=== PATIENT | male | born 1985 | race Hispanic/Latino ===

== ENCOUNTER 2017-10-23 13:07 | Emergency (ER) | payer SELFPAY ==
--- NOTE | 2017-10-23 15:49 | ER ---
Nurse's Notes [facility] Name: Korey Marks Age: 32 yrs Sex: Male : 1985 Arrival Date: 10/23/2017 Time: 13:10 Bed 11 Private MD: None, None Diagnosis: Low back pain Presentation: 10/23 14:07 Presenting complaint: Patient states: Reports low back pain for 3 months that got worse aj today. Reports pain with movement or bending. Transition of care: patient was not received from another setting of care. Onset of symptoms was June 2017. Risk Assessment: Do you want to hurt yourself or someone else? Patient reports no desire to harm self or others. Initial Sepsis Screen: Does the patient meet any 2 criteria? No. Patient's initial sepsis screen is negative. Does the patient have a suspected source of infection? No. Patient's initial sepsis screen is negative. Care prior to arrival: None. 14:07 Method Of Arrival: Ambulatory aj 14:07 Acuity: LISA 4 aj Triage Assessment: 14:08 General: Appears in no apparent distress. comfortable, Behavior is calm, cooperative, aj appropriate for age. Pain: Complains of pain in low back area. Neuro: Level of Consciousness is awake, alert, obeys commands, Oriented to person, place, time, situation, Appropriate for age. Respiratory: Airway is patent Trachea midline Respiratory effort is even, unlabored, Respiratory pattern is regular, symmetrical. Derm: Skin is intact, is healthy with good turgor, Skin is pink, warm \T\ dry. normal. Musculoskeletal: Circulation, motion, and sensation intact. Reports pain in low back area. Historical: - Allergies: 14:08 No Known Allergies; aj - Home Meds: 14:08 None [Active]; aj - PMHx: 14:08 None; aj - PSHx: 14:08 None; aj - Immunization history:: Adult Immunizations up to date. - Social history:: Smoking status: Patient/guardian denies using tobacco. - Ebola Screening: : Patient negative for fever greater than or equal to 101.5 degrees Fahrenheit, and additional compatible Ebola Virus Disease symptoms Patient denies exposure to infectious person Patient denies travel to an Ebola-affected area in the 21 days before illness onset No symptoms or risks identified at this time. Screenin:38 Abuse screen: Denies threats or abuse. Nutritional screening: No deficits noted. rk2 Tuberculosis screening: No symptoms or risk factors identified. Fall Risk None identified. Assessment: 15:39 General: Appears in no apparent distress. slender, well groomed, well developed, well rk2 nourished, Behavior is calm, cooperative, appropriate for age. Pain: Complains of pain in back and low back area. Neuro: Level of Consciousness is alert, obeys commands, Oriented to person, place, time, situation. Respiratory: Airway is patent Respiratory effort is even, unlabored, Respiratory pattern is regular, symmetrical. Derm: Skin is pink, warm \T\ dry. Injury Description: No obvious trauma/bruising noted. Vital Signs: 14:08 BP 134 / 81; Pulse 84; Resp 18; Temp 98.6; Pulse Ox 96% on R/A; Weight 82.55 kg; Height aj 5 ft. 6 in. (167.64 cm); 16:07 BP 124 / 74; Pulse 88; Resp 16; Pulse Ox 97% ; rk2 14:08 Body Mass Index 29.38 (82.55 kg, 167.64 cm) aj ED Course: 13:10 Patient arrived in ED. sb2 13:11 None, None is Private Physician. sb2 14:08 Triage completed. aj 14:08 Arm band placed on left wrist. Patient placed in waiting room, Patient notified of wait aj time. 15:32 Diana Gan, RN is Primary Nurse. rk2 15:38 Patient has correct armband on for positive identification. Bed in low position. Call rk2 light in reach. 15:44 Maryam Herrera FNP-C [facility]. snw 15:44 Flynn Lamb MD is Attending Physician. snw 16:07 No provider procedures requiring assistance completed. Patient did not have IV access rk2 during this emergency room visit. Administered Medications: 16:00 Drug: TORadol 60 mg Route: IM; Site: left deltoid; rk2 16:09 Follow up: Given \T\ DC rk2 16:00 Drug: Flexeril 10 mg Route: PO; rk2 16:09 Follow up: given \T\ DC rk2 Intake: Outcome: 15:48 Discharge ordered by . snw 16:08 Discharged to home ambulatory. rk2 16:08 Condition: good 16:08 Discharge instructions given to patient, Prescriptions given X 2. 16:08 Patient left the ED. rk2 Signatures: Tatum Gilbert, RN Maryam Yeung, PIPE COVERER AND INSULATOR-C PIPE COVERER AND INSULATOR-Csnw Diana Gan RN RN rk2 Mabel Mercado sb2
--- NOTE | 2017-10-23 15:49 | EDPHYS ---
Physician Documentation [facility] Name: Korey Marks Age: 32 yrs Sex: Male : 1985 Arrival Date: 10/23/2017 Time: 13:10 Bed 11 Private MD: None, None ED Physician Flynn Lamb HPI: 10/23 17:26 This 32 yrs old Male presents to ER via Ambulatory with complaints of Back snw Pain. 17:26 The patient presents with pain that is acute. The symptoms are located in the low back. snw Onset: The symptoms/episode began/occurred 3 month(s) ago, and became worse 3 day(s) ago. The pain does not radiate. Associated signs and symptoms: The patient has no apparent associated signs or symptoms. The problem was sustained from unknown cause. Severity of symptoms: At their worst the symptoms were moderate, severe. It is unknown whether or not the patient has had similar symptoms in the past. The patient has not recently seen a physician. Historical: - Allergies: 14:08 No Known Allergies; aj - Home Meds: 14:08 None [Active]; aj - PMHx: 14:08 None; aj - PSHx: 14:08 None; aj - Immunization history:: Adult Immunizations up to date. - Social history:: Smoking status: Patient/guardian denies using tobacco. - Ebola Screening: : Patient negative for fever greater than or equal to 101.5 degrees Fahrenheit, and additional compatible Ebola Virus Disease symptoms Patient denies exposure to infectious person Patient denies travel to an Ebola-affected area in the 21 days before illness onset No symptoms or risks identified at this time. ROS: 17:24 Constitutional: Negative for fever, chills, and weight loss, Eyes: Negative for injury, snw pain, redness, and discharge, ENT: Negative for injury, pain, and discharge, Neck: Negative for injury, pain, and swelling, Cardiovascular: Negative for chest pain, palpitations, and edema, Respiratory: Negative for shortness of breath, cough, wheezing, and pleuritic chest pain, Abdomen/GI: Negative for abdominal pain, nausea, vomiting, diarrhea, and constipation, Back: Negative for injury, + pain with flexion, difficulty performing work responsibilities : Negative for injury, bleeding, discharge, and swelling, MS/Extremity: Negative for injury and deformity, Skin: Negative for injury, rash, and discoloration. Exam: 17:23 Constitutional: This is a well developed, well nourished patient who is awake, alert, snw and in no acute distress. Head/Face: Normocephalic, atraumatic. Eyes: Pupils equal round and reactive to light, extra-ocular motions intact. Lids and lashes normal. Conjunctiva and sclera are non-icteric and not injected. Cornea within normal limits. Periorbital areas with no swelling, redness, or edema. ENT: Nares patent. No nasal discharge, no septal abnormalities noted. Tympanic membranes are normal and external auditory canals are clear. Oropharynx with no redness, swelling, or masses, exudates, or evidence of obstruction, uvula midline. Mucous membranes moist. Neck: Trachea midline, no thyromegaly or masses palpated, and no cervical lymphadenopathy. Supple, full range of motion without nuchal rigidity, or vertebral point tenderness. No Meningismus. Chest/axilla: Normal chest wall appearance and motion. Nontender with no deformity. No lesions are appreciated. Cardiovascular: Regular rate and rhythm with a normal S1 and S2. No gallops, murmurs, or rubs. Normal PMI, no JVD. No pulse deficits. Respiratory: Lungs have equal breath sounds bilaterally, clear to auscultation and percussion. No rales, rhonchi or wheezes noted. No increased work of breathing, no retractions or nasal flaring. Abdomen/GI: Soft, non-tender, with normal bowel sounds. No distension or tympany. No guarding or rebound. No evidence of tenderness throughout. Skin: Warm, dry with normal turgor. Normal color with no rashes, no lesions, and no evidence of cellulitis. MS/ Extremity: Pulses equal, no cyanosis. Neurovascular intact. Full, normal range of motion. Neuro: Awake and alert, GCS 15, oriented to person, place, time, and situation. Cranial nerves II-XII grossly intact. Motor strength 5/5 in all extremities. Sensory grossly intact. Cerebellar exam normal. Normal gait. Psych: Awake, alert, with orientation to person, place and time. Behavior, mood, and affect are within normal limits. 17:23 Back: pain, that is moderate, of the lumbar area, left low back and right low back, ROM is painful, with flexion, normal spinal alignment noted, CVA tenderness, is absent, muscle spasm, is appreciated in the left low back and right low back. 17:27 Neuro: Exam negative for acute changes. snw Vital Signs: 14:08 BP 134 / 81; Pulse 84; Resp 18; Temp 98.6; Pulse Ox 96% on R/A; Weight 82.55 kg; Height aj 5 ft. 6 in. (167.64 cm); 16:07 BP 124 / 74; Pulse 88; Resp 16; Pulse Ox 97% ; rk2 14:08 Body Mass Index 29.38 (82.55 kg, 167.64 cm) aj MDM: 15:44 Patient medically screened. snw 17:27 Data reviewed: vital signs, nurses notes. Data interpreted: Pulse oximetry: on room air snw is 97 %. Interpretation: normal. Counseling: I had a detailed discussion with the patient and/or guardian regarding: the historical points, exam findings, and any diagnostic results supporting the discharge/admit diagnosis, the need for outpatient follow up, to return to the emergency department if symptoms worsen or persist or if there are any questions or concerns that arise at home. Special discussion: Based on the history and exam findings, there is no indication for further emergent testing or inpatient evaluation. I discussed with the patient/guardian the need to see the back specialist for further evaluation of the symptoms. I discussed with the patient/guardian the need to see the primary care provider for further evaluation of the symptoms. Administered Medications: 16:00 Drug: TORadol 60 mg Route: IM; Site: left deltoid; rk2 16:09 Follow up: Given \T\ DC rk2 16:00 Drug: Flexeril 10 mg Route: PO; rk2 16:09 Follow up: given \T\ DC rk2 Disposition: 10/24 06:53 Co-signature as Attending Physician, Flynn Lamb MD I agree with the assessment and radha plan of care. Disposition: 10/23/17 15:48 Discharged to Home. Impression: Low back pain. - Condition is Stable. - Discharge Instructions: Back Pain, Adult, Hypertension, Musculoskeletal Pain, Back Injury Prevention, [id number], Back Exercises, [id number], Cryotherapy, Heat Therapy. - Prescriptions for Diclofenac Sodium 75 mg Oral Tablet Sustained Release - take 1 tablet by ORAL route 2 times per day; 30 tablet. orphenadrine citrate 100 mg Oral Tablet Sustained Release - take 1 tablet by ORAL route 2 times per day As needed; 20 tablet. - Work release form, Medication Reconciliation Form, Thank You Letter, Antibiotic Education, Prescription Opioid Use form. - Follow up: Private Physician; When: 2 - 3 days; Reason: Recheck today's complaints, Continuance of care, Re-evaluation by your physician. Follow up: Emergency Department; When: As needed; Reason: Worsening of condition. Signatures: Tatum Gilbert, RN Flynn Cadena MD MD cha Therrien, Shelly, LINK TRAINER TEACHER-C LINK TRAINER TEACHER-Csnw Diana Gan RN RN rk2 Corrections: (The following items were deleted from the chart) 10/23 16:08 15:48 10/23/2017 15:48 Discharged to Home. Impression: Low back pain. Condition is rk2 Stable. Forms are Medication Reconciliation Form, Thank You Letter, Antibiotic Education, Prescription Opioid Use. Follow up: Private Physician; When: 2 - 3 days; Reason: Recheck today's complaints, Continuance of care, Re-evaluation by your physician. Follow up: Emergency Department; When: As needed; Reason: Worsening of condition. snw
[2017-10-23] MEDS ORDERED: KETOROLAC 30 MG/ML INJ ONE (15:58)
[2017-10-23] MEDS ORDERED: CYCLOBENZAPRINE 10 MG TAB ONE (15:58)
== END 2017-10-23 16:08 | disposition home or self-care (01) ==
LOC: ER 13:07
DX: M54.5 Low back pain (principal)
CPT/HCPCS: 96372; 99283

== ENCOUNTER 2019-01-05 11:02 | Emergency (ER) | payer SELFPAY ==
--- NOTE | 2019-01-05 13:57 | RAD REPORT ---
EXAM DESCRIPTION: RAD - Chest Single View - 01/05/2019 1:47 pm CLINICAL HISTORY: Fall, right-sided chest and abdomen pain COMPARISON: None. TECHNIQUE: AP portable chest image was obtained . FINDINGS: Lungs are clear. Heart and vasculature are normal. No measurable pleural effusion and no p neumothorax. No acute bone abnormality seen. Right-sided ribs are further detailed on separate report . No acute aortic findings suspected. IMPRESSION: No acute cardiopulmonary process. No significant change from comparison.
--- NOTE | 2019-01-05 13:59 | RAD REPORT ---
EXAM DESCRIPTION: Ribs Right - 01/05/2019 1:47 pm CLINICAL HISTORY: Fall, chest pain, right-sided rib pain COMPARISON: Chest film same date FINDINGS: No displaced rib fracture is evident. No aggressive rib lesion. No underlying pneumothorax, effusion, infiltrate or pulmonary contusion. IMPRESSION: Negative right rib series.
--- NOTE | 2019-01-05 14:02 | ER ---
Nurse's Notes [facility] Name: Korey Marks Age: 33 yrs Sex: Male : 1985 Arrival Date: 01/05/2019 Time: 11:03 Bed 26 Private MD: Diagnosis: Fall on same level, unspecified;Chest wall pain - clinical rib fracture Presentation: 01/05 11:18 Presenting complaint: Patient states: "I was wrestling with another andreina yesterday and I aa5 fell and landed on a metal pipe". Pt c/o pain to right side of abdomen. Transition of care: patient was not received from another setting of care. Onset of symptoms was December 2018. Risk Assessment: Do you want to hurt yourself or someone else? Patient reports no desire to harm self or others. Initial Sepsis Screen: Does the patient meet any 2 criteria? No. Patient's initial sepsis screen is negative. Does the patient have a suspected source of infection? No. Patient's initial sepsis screen is negative. Care prior to arrival: None. 11:18 Acuity: LISA 3 aa5 11:18 Method Of Arrival: Ambulatory aa5 Historical: - Allergies: 11:20 No Known Allergies; aa5 - PMHx: 11:20 None; aa5 - PSHx: 11:20 None; aa5 - Immunization history:: Adult Immunizations unknown. - Social history:: Smoking status: Patient uses tobacco products, denies chronic smoking, but will smoke occasionally. - Ebola Screening: : No symptoms or risks identified at this time. Screenin:29 Abuse screen: Denies threats or abuse. Denies injuries from another. Nutritional ca1 screening: No deficits noted. Tuberculosis screening: No symptoms or risk factors identified. Fall Risk None identified. Assessment: 12:29 General: Appears in no apparent distress. comfortable, Behavior is calm, cooperative, ca1 appropriate for age. Pain: Complains of pain in R rib Pain does not radiate. Pain currently is 8 out of 10 on a pain scale. Pain began 1 day ago. Neuro: Level of Consciousness is awake, alert, obeys commands, Oriented to person, place, time, situation. Cardiovascular: Heart tones S1 S2 present Capillary refill < 3 seconds Patient's skin is warm and dry. Respiratory: Airway is patent Respiratory effort is even, unlabored, Respiratory pattern is regular, symmetrical, Breath sounds are clear bilaterally. GI: Abdomen is flat, non-distended, Bowel sounds present X 4 quads. Abd is soft and non tender X 4 quads. : No deficits noted. No signs and/or symptoms were reported regarding the genitourinary system. EENT: No deficits noted. No signs and/or symptoms were reported regarding the EENT system. Derm: Skin is intact, is healthy with good turgor, Skin is pink, warm \\T\\ dry. Musculoskeletal: Circulation, motion, and sensation intact. Capillary refill < 3 seconds, Range of motion: intact in all extremities. 13:30 Reassessment: Patient appears in no apparent distress at this time. Patient and/or ca1 family updated on plan of care and expected duration. Pain level reassessed. Patient is alert, oriented x 3, equal unlabored respirations, skin warm/dry/pink. Vital Signs: 11:20 BP 133 / 80; Pulse 72; Resp 18 S; Temp 97.6(TE); Pulse Ox 98% on R/A; Weight 83.91 kg aa5 (R); Height 5 ft. 6 in. (167.64 cm) (R); Pain 7/10; 12:29 BP 126 / 84; Pulse 70; Resp 17 S; Pulse Ox 99% on R/A; ca1 13:00 BP 120 / 77; Pulse 73; Resp 16 S; Pulse Ox 98% on R/A; ca1 14:09 BP 119 / 78; Pulse 74; Resp 16; Pulse Ox 100% on R/A; tr5 11:20 Body Mass Index 29.86 (83.91 kg, 167.64 cm) aa5 ED Course: 11:03 Patient arrived in ED. as 11:18 Arm band placed on. aa5 11:19 Triage completed. aa5 12:03 Maryam Herrera FNP-C is [facility]. snw 12:03 Nithin Brasher MD is Attending Physician. snw 12:07 Ellyn Tejada, BRIA is Primary Nurse. ca1 12:29 Patient has correct armband on for positive identification. Bed in low position. Call ca1 light in reach. Side rails up X 1. Pulse ox on. NIBP on. Warm blanket given. 12:29 No provider procedures requiring assistance completed. Patient did not have IV access ca1 during this emergency room visit. 13:50 Ribs Right XRAY In Process Unspecified. EDMS 13:50 Chest Single View XRAY In Process Unspecified. EDMS Administered Medications: No medications were administered Outcome: 14:02 Discharge ordered by . jessica 14:19 Discharged to home ambulatory. tr5 14:19 Condition: stable 14:19 Discharge instructions given to patient, Instructed on discharge instructions, follow up and referral plans. medication usage, Demonstrated understanding of instructions, follow-up care, medications, Prescriptions given X 1. 14:20 Patient left the ED. tr5 Signatures: Dispatcher [employer] EDMS Maryam Herrera, EXTENSION SERVICE SPECIALIST IN CHARGE-C EXTENSION SERVICE SPECIALIST IN CHARGE-Csnw Krista Brower Audri RN RN aa5 Ellyn Tejada RN RN ca1 Rodriguez, Tommie, RN RN tr5 Corrections: (The following items were deleted from the chart) 11:22 11:18 Presenting complaint: Patient states: "I was with another andreina yesterday and I aa5 fell and landed on a metal pipe". Pt c/o pain to right side of abdomen. aa5
--- NOTE | 2019-01-05 14:02 | EDPHYS ---
Physician Documentation [facility] Name: Korey Marks Age: 33 yrs Sex: Male : 1985 Arrival Date: 01/05/2019 Time: 11:03 Bed 26 Private MD: ED Physician Nithin Brasher HPI: 01/05 14:02 This 33 yrs old Male presents to ER via Ambulatory with complaints of Fall snw Injury - Rib Pain, Abdominal Pain. 14:02 Details of fall: The patient fell from an upright position. Onset: The symptoms/episode snw began/occurred suddenly, 1 day(s) ago, and became persistent. Associated injuries: The patient sustained injury to the chest, specifically the right lateral anterior chest, contusion. Severity of symptoms: At their worst the symptoms were moderate. The patient has not experienced similar symptoms in the past. The patient has not recently seen a physician. wrestling and landed on the floor on a pipe to right chest. Historical: - Allergies: 11:20 No Known Allergies; aa5 - PMHx: 11:20 None; aa5 - PSHx: 11:20 None; aa5 - Immunization history:: Adult Immunizations unknown. - Social history:: Smoking status: Patient uses tobacco products, denies chronic smoking, but will smoke occasionally. - Ebola Screening: : No symptoms or risks identified at this time. ROS: 13:59 Eyes: Negative for injury, pain, redness, and discharge, ENT: Negative for injury, snw pain, and discharge, Neck: Negative for injury, pain, and swelling. 13:59 Constitutional: Negative for fever, chills, and weight loss, Respiratory: Negative for shortness of breath, cough, wheezing, and pleuritic chest pain, Abdomen/GI: Negative for abdominal pain, nausea, vomiting, diarrhea, and constipation, Back: Negative for injury and pain, : Negative for injury, bleeding, discharge, and swelling, MS/Extremity: Negative for injury and deformity, Skin: Negative for injury, rash, and discoloration, Neuro: Negative for headache, weakness, numbness, tingling, and seizure. 13:59 Cardiovascular: Positive for chest wall pain. Exam: 13:58 Constitutional: This is a well developed, well nourished patient who is awake, alert, snw and in no acute distress. Head/Face: Normocephalic, atraumatic. Eyes: Pupils equal round and reactive to light, extra-ocular motions intact. Lids and lashes normal. Conjunctiva and sclera are non-icteric and not injected. Cornea within normal limits. Periorbital areas with no swelling, redness, or edema. ENT: Nares patent. No nasal discharge, no septal abnormalities noted. Tympanic membranes are normal and external auditory canals are clear. Oropharynx with no redness, swelling, or masses, exudates, or evidence of obstruction, uvula midline. Mucous membranes moist. Neck: Trachea midline, no thyromegaly or masses palpated, and no cervical lymphadenopathy. Supple, full range of motion without nuchal rigidity, or vertebral point tenderness. No Meningismus. Cardiovascular: Regular rate and rhythm with a normal S1 and S2. No gallops, murmurs, or rubs. Normal PMI, no JVD. No pulse deficits. Respiratory: Lungs have equal breath sounds bilaterally, clear to auscultation and percussion. No rales, rhonchi or wheezes noted. No increased work of breathing, no retractions or nasal flaring. Abdomen/GI: Soft, non-tender, with normal bowel sounds. No distension or tympany. No guarding or rebound. No evidence of tenderness throughout. Back: No spinal tenderness. No costovertebral tenderness. Full range of motion. Skin: Warm, dry with normal turgor. Normal color with no rashes, no lesions, and no evidence of cellulitis. MS/ Extremity: Pulses equal, no cyanosis. Neurovascular intact. Full, normal range of motion. Neuro: Awake and alert, GCS 15, oriented to person, place, time, and situation. Cranial nerves II-XII grossly intact. Motor strength 5/5 in all extremities. Sensory grossly intact. Cerebellar exam normal. Normal gait. Psych: Awake, alert, with orientation to person, place and time. Behavior, mood, and affect are within normal limits. 13:58 Chest/axilla: Inspection: normal, Palpation: no acute changes, tenderness, that is moderate, of the right lateral anterior chest, Lymph nodes: lymphadenopathy is not appreciated. Vital Signs: 11:20 BP 133 / 80; Pulse 72; Resp 18 S; Temp 97.6(TE); Pulse Ox 98% on R/A; Weight 83.91 kg aa5 (R); Height 5 ft. 6 in. (167.64 cm) (R); Pain 7/10; 12:29 BP 126 / 84; Pulse 70; Resp 17 S; Pulse Ox 99% on R/A; ca1 13:00 BP 120 / 77; Pulse 73; Resp 16 S; Pulse Ox 98% on R/A; ca1 14:09 BP 119 / 78; Pulse 74; Resp 16; Pulse Ox 100% on R/A; tr5 11:20 Body Mass Index 29.86 (83.91 kg, 167.64 cm) aa5 MDM: 12:29 Patient medically screened. snw 14:04 Data reviewed: vital signs, nurses notes. Data interpreted: Pulse oximetry: on room air snw is 98 %. Interpretation: normal. Counseling: I had a detailed discussion with the patient and/or guardian regarding: the historical points, exam findings, and any diagnostic results supporting the discharge/admit diagnosis, radiology results, the need for outpatient follow up, to return to the emergency department if symptoms worsen or persist or if there are any questions or concerns that arise at home. Special discussion: Based on the patient's history, exam, and Dx evaluation, there is no indication for emergent intervention or inpatient Tx. It is understood by the patient/guardian that if the Sx's persist or worsen they need to return immediately for re-evaluation. Based on the history and exam findings, there is no indication for further emergent testing or inpatient evaluation. I discussed with the patient/guardian the need to see the primary care provider for further evaluation of the symptoms. 01/05 12:35 Order name: Ribs Right XRAY; Complete Time: 14:05 snw 01/05 12:35 Order name: Chest Single View XRAY; Complete Time: 14:05 snw Administered Medications: No medications were administered Disposition: 17:55 Co-signature as Attending Physician, Nithin Brasher MD. rn Disposition: 01/05/19 14:02 Discharged to Home. Impression: Fall on same level, unspecified, Chest wall pain - clinical rib fracture. - Condition is Stable. - Discharge Instructions: Rib Contusion, Fall Prevention in the Home, Rib Fracture, Incentive Spirometer. - Prescriptions for Mobic 7.5 mg Oral Tablet - take 1 tablet by ORAL route once daily take with food; 20 tablet. - Medication Reconciliation Form, Thank You Letter, Antibiotic Education, Prescription Opioid Use, Work release form form. - Follow up: Private Physician; When: 2 - 3 days; Reason: Recheck today's complaints, Continuance of care, Re-evaluation by your physician. Follow up: Emergency Department; When: As needed; Reason: Worsening of condition. Signatures: Dispatcher [employer] EDSD Maryam Herrera, THERAPY ADMINISTRATIVE ASSISTANT-C THERAPY ADMINISTRATIVE ASSISTANT-Csnw Nithin Brasher MD MD rn Calderon, Audri RN RN aa5 Pablo Lopes RN RN tr5 Corrections: (The following items were deleted from the chart) 14:20 14:02 01/05/2019 14:02 Discharged to Home. Impression: Fall on same level, unspecified; tr5 Chest wall pain - clinical rib fracture. Condition is Stable. Forms are Medication Reconciliation Form, Thank You Letter, Antibiotic Education, Prescription Opioid Use. Follow up: Private Physician; When: 2 - 3 days; Reason: Recheck today's complaints, Continuance of care, Re-evaluation by your physician. Follow up: Emergency Department; When: As needed; Reason: Worsening of condition. snw
[2019-01-05 14:49] VITALS: TEMP 97.6
[2019-01-05 14:53] VITALS: BP 119/78; O2SAT 100
== END 2019-01-05 14:20 | disposition home or self-care (01) ==
LOC: ER 11:02
DX: R07.89 Other chest pain (principal); W03.XXXA Other fall on same level due to collision with another person, initial encounter; Y93.89 Activity, other specified; Y92.9 Unspecified place or not applicable
CPT/HCPCS: 71045; 99283

== ENCOUNTER 2022-07-15 12:20 | Emergency (ER) | payer SELFPAY ==
--- OUTSIDE RECORDS SUMMARY | 2022-07-15 12:25 | XMS REPORT | Continuity of Care Document ---
:1985 Author Organization [facility] t Address [address] [place] [address] Care Team Providers Name Role Phone Unavailable Unavailable Unavailable Problems This patient has no known problems. Allergies, Adverse Reactions, Alerts This patient has no known allergies or adverse reactions. Medications This patient has no known medications. Procedures This patient has no known procedures. Encounters Start End Encounter Admission Attending Care Care Encounter Source Date/Time Date/Time Type Type Clinicians Facility Department ID 2022-06-17 2022-06-17 Outpatient [facility] [id number] [place] 17:38:45 17:38:45 [id number] [facility] 2022-05-26 2022-05-26 Outpatient [facility] [id number] 13:42:54 13:42:54 [id number] Anita Casiano Results This patient has no known results.
--- NOTE | 2022-07-15 12:45 | EDPHYS ---
Physician Documentation [facility] Name: Korey Marks Age: 37 yrs Sex: Male : 1985 Arrival Date: 07/15/2022 Time: 12:26 Bed Waiting Private MD: ED Physician Bola Merrill Historical: - Allergies: 07/15 12:41 No Known Allergies; hb - Immunization history:: Adult Immunizations up to date. - Social history:: Smoking status: Patient denies any tobacco usage or history of. Vital Signs: 12:40 BP 138 / 92; Pulse 77; Resp 16; Temp 97.5; Pulse Ox 99% on R/A; Weight 85.73 kg; Height hb 5 ft. 6 in. ; Pain 2/10; 12:40 Body Mass Index 30.51 (85.73 kg, 167.64 cm) hb 12:40 Pain Scale: Adult hb MDM: 12:43 Patient medically screened. kb Administered Medications: No medications were administered Disposition Summary: 07/15/22 12:44 Discharge Ordered Location: Home kb Condition: Stable kb Diagnosis - Other forms of stomatitis kb Followup: kb - With: Emergency Department - When: As needed - Reason: Worsening of condition Followup: kb - With: Private Physician - When: 2 - 3 days - Reason: Recheck today's complaints, Continuance of care, Re-evaluation by your physician Forms: - Medication Reconciliation Form kb - Thank You Letter kb - Antibiotic Education kb - Prescription Opioid Use kb Signatures: Aletha Enamorado FNP-C FNP-Perla Rodriguez, RN RN hb
--- NOTE | 2022-07-15 12:45 | ER ---
Nurse's Notes [facility] Name: Korey Marks Age: 37 yrs Sex: Male : 1985 Arrival Date: 07/15/2022 Time: 12:26 Bed Waiting Private MD: Diagnosis: Other forms of stomatitis Presentation: 07/15 12:40 Chief complaint: Mouth pain x 2 months. Coronavirus screen: At this time, the client hb does not indicate any symptoms associated with coronavirus-19. Ebola Screen: No symptoms or risks identified at this time. Initial Sepsis Screen: Does the patient meet any 2 criteria? No. Patient's initial sepsis screen is negative. Does the patient have a suspected source of infection? No. Patient's initial sepsis screen is negative. Risk Assessment: Do you want to hurt yourself or someone else? Patient reports no desire to harm self or others. Onset of symptoms was May 2022. 12:40 Method Of Arrival: Ambulatory hb 12:40 Acuity: LISA 4 hb Triage Assessment: 12:40 General: Appears in no apparent distress. Behavior is calm, cooperative. Pain: Pain hb currently is 2 out of 10 on a pain scale. at worst was 6 out of 10 on a pain scale. Neuro: Level of Consciousness is awake, alert, obeys commands, Oriented to person, place, time, situation. Cardiovascular: Patient's skin is warm and dry. Respiratory: Respiratory effort is even, unlabored, Respiratory pattern is regular, symmetrical. Historical: - Allergies: 12:41 No Known Allergies; hb - Immunization history:: Adult Immunizations up to date. - Social history:: Smoking status: Patient denies any tobacco usage or history of. Screenin:43 [facility] ED Fall Risk Assessment (Adult) Score/Fall Risk Level 0 - 2 = Low Risk hb Oriented to surroundings, Maintained a safe environment. Abuse screen: Denies threats or abuse. Denies injuries from another. Nutritional screening: No deficits noted. Tuberculosis screening: No symptoms or risk factors identified. Assessment: 12:43 General: See triage assessment. hb Vital Signs: 12:40 BP 138 / 92; Pulse 77; Resp 16; Temp 97.5; Pulse Ox 99% on R/A; Weight 85.73 kg; Height hb 5 ft. 6 in. ; Pain 2/10; 12:40 Body Mass Index 30.51 (85.73 kg, 167.64 cm) hb 12:40 Pain Scale: Adult hb ED Course: 12:26 Patient arrived in ED. mr 12:28 Aletha Enamorado FNP-C is [facility]. kb 12:28 Bola Merrill MD is Attending Physician. kb 12:41 Triage completed. hb 12:41 Arm band placed on. hb 12:43 Patient has correct armband on for positive identification. hb 12:43 No provider procedures requiring assistance completed. Patient did not have IV access hb during this emergency room visit. Administered Medications: No medications were administered Medication: 12:43 VIS not applicable for this client. hb Outcome: 12:44 Discharge ordered by . kb Signatures: Aletha Enamorado FNP-C FNP-Misti Koenig Perla Rae, RN RN hb Corrections: (The following items were deleted from the chart) 12:42 12:40 BP 138 / 92; Pulse 77bpm; Resp 16bpm; Pulse Ox 99% RA; Temp 97.5F; hb hb
== END 2022-07-15 12:50 | disposition home or self-care (01) ==
LOC: ER 12:20
DX: K12.1 Other forms of stomatitis (principal)
CPT/HCPCS: 99281